=== PATIENT | female | born 1940 | race Caucasian/White ===

== ENCOUNTER 2024-06-25 20:13 | Emergency (ER) | payer OTHER ==
[~2024-06-25] VITALS: Ht 149.9 cm; Wt 67.1 kg
--- NOTE | 2024-06-25 20:35 | ERN ---
ED Note History of Present Illness Stated Complaint: ALLERGIC REACTION Chief Complaint: Allergic Reaction Time Seen by MD: 20:31 Dictation: PATIENT IS AN 80-YEAR-OLD FEMALE HERE WITH SWOLLEN LOWER LIP AND URTICARIAL RASH ONSET 1 HOUR PRIOR TO ARRIVAL. SHE STATES SHE WAS EATING A TURKEY SANDWICH WITH HER DAUGHTER, SHE HAS HAD THE SAME FOOD IN THE PAST. NO SOB VOICE IS CLEAR. TAKEN ANYTHING PRIOR TO ARRIVAL. Allergies: Coded Allergies: No Known Drug Allergies (Unverified Allergy, Unknown, 06/25/24) Past Medical History Past Medical History: CHF, Depression, High Cholesterol, Other Additional Past Medical Hx: THYROID Surgical History: Appendectomy, Cholecystectomy, Other Surgical History Other: LEFT LEG History: Not Applicable RN Note Reviewed/Agreed w/PFSH: Yes Review of System Dictation CONSTITUTIONAL: NEGATIVE EXCEPT FOR HPI HEAD/FACE: NEGATIVE EXCEPT FOR HPI EENT: NEGATIVE EXCEPT FOR HPI ANGIOEDEMA LOWER LIP RESPIRATORY: NEGATIVE EXCEPT FOR HPI GASTROINTESTINAL/ABDOMINAL: NEGATIVE EXCEPT FOR HPI GENITOURINARY: NEGATIVE EXCEPT FOR HPI MUSCULOSKELETAL: NEGATIVE EXCEPT FOR HPI INTEGUMENTARY: NEGATIVE EXCEPT FOR HPI URTICARIA NEUROLOGICAL/PSYCH: NEGATIVE EXCEPT FOR HPI HEMATOLOGIC/LYMPHATIC: NEGATIVE EXCEPT FOR HPI ALL SYSTEMS NEGATIVE, EXCEPT NOTED ABOVE. 13 POINT REVIEW OF SYSTEMS ASSESSED AND ALL NEGATIVE EXCEPT FOR ABOVE. Initial Vital Sign VS Vital Signs Date Time Temp Pulse Resp B/P (MAP) Pulse Ox O2 Delivery O2 Flow Rate FiO2 06/25/24 20:15 97.9 66 20 166/67 96 Room Air Physical Exam Dictation VITAL SIGNS REVIEWED GENERAL APPEARANCE: ALERT, ORIENTED X 3, NO ACUTE DISTRESS, WELL DEVELOPED, NOURISHED. HEAD AND FACE: NON-TRAUMATIC. EYES: PERRL, PINK CONJUNCTIVAS, EYELID NO TRAUMA, ANTERIOR CHAMBER WITH ARCUS SENILIS. EARS: PINNAS INTACT AND NO SIGNS OF TRAUMA OR ERYTHEMA EAR CANALS CLEAR AND NO DISCHARGE TM NO ERYTHEMA NOSE: NO DISCHARGE, NO BLEEDING. OROPHARYNX: ANGIOEDEMA LOWER LIP VOICE IS CLEAR NO THROAT TIGHTENING PER PATIENT PHARYNX CLEAR,NO ERYTHEMA, TONSILS NO EXUDATES, NO ABSCESSES NOTED, MUCOUS MEMBRANE MOIST NECK: SUPPLE, NON-TENDER, NO THYROMEGALY, NO MASSES, NO JVD, NO BRUITS BREAST:DEFERRED CHEST:NO TENDERNESS, NO CREPITUS, NO PARADOXICAL MOVEMENT, NO RETRACTIONS LUNGS:CLEAR, WELL-VENTILATED, SYMMETRIC, NO RALES, NO WHEEZING, NO RHONCHI, NO STRIDOR, GOOD BREATH SOUNDS BILATERALLY HEART: REGULAR RATE, REGULAR RHYTHM, NO MURMUR, NO GALLOPS VASCULAR: NO PERIPHERAL EDEMA, ABDOMEN: SOFT, POSITIVE BOWEL SOUNDS, NONDISTENDED, NO GUARDING, NONTENDER, NO REBOUND, NO MASSES NO HEPATOMEGALY, NO SPLENOMEGALY, NO HAIRSTON'S SIGN, NO HERNIAS. RECTAL: DEFERRED GENITAL: DEFERRED NEUROLOGICAL: NORMAL SPEECH, MOTOR FUNCTION INTACT, SENSORY FUNCTION INTACT MUSCULOSKELETAL: NECK NONTENDER, FULL RANGE OF MOTION, BACK NONTENDER, FULL RANGE OF MOTION, EXTREMITIES: NONTENDER, FULL RANGE OF MOTION SKIN: COLOR PINK, DRY, DISCRETE URTICARIAL RASH TO ANTERIOR AND POSTERIOR THORAX. LYMPHATIC: DEFERRED Results (Laboratory/Radiology) Labs Reviewed?: Yes ED Course ED Course Orders Procedure Category Date Status Time Diphenhydramine Hcl PHA 06/25/24 Complete (Benadryl Inj) 21:00 Dexamethasone 4mg/Ml PHA 06/25/24 Complete 1ml Vial (Dexametha 21:00 Famotidine 20mg Tab PHA 06/25/24 Complete (Pepcid 20mg Tab) 21:00 Current Medications Medications (Trade) Dose Ordered Sig/Rafita Route PRN Reason Start Time Stop Time Status Last Admin Dose Admin Dexamethasone Sodium Phosphate (dexaMETHasone 4MG/ML 1ML VIAL) 4 mg ONCE ONCE IM 06/25/24 21:00 06/25/24 21:01 DC 06/25/24 21:13 Diphenhydramine HCl (BENAdryl INJ) 25 mg ONCE ONCE IM 06/25/24 21:00 06/25/24 21:01 DC 06/25/24 21:14 Famotidine (Pepcid 20mg Tab) 40 mg ONCE ONCE PO 06/25/24 21:00 06/25/24 21:01 DC 06/25/24 21:14 Vital Signs Date Time Temp Pulse Resp B/P (MAP) Pulse Ox O2 Delivery O2 Flow Rate FiO2 06/25/24 20:15 97.9 66 20 166/67 96 Room Air 2135/angioedema is resolving patient has mild urticarial rash remaining. Bilateral breath sounds are clear voice is clear she wants to go home. Medical Decision Making MDM Medical discharge making based on empiric treatment for urticarial rash and angioedema of the lips Patient was advised that there is no test to show what she has responded to. She states she has had a history of urticarial rashes a coming go in the past few years however has not been referred to technology analyst. I advised her to see her primary care doctor back in [place] and be referred to an technology analyst for treatment and management DX & DISP Disposition: Discharge Departure Impression: Primary Impression: Acute allergic reaction Additional Impressions: Angioedema of lips, Urticaria Condition: Stable Scripts Famotidine (Pepcid) 40 Mg Tablet 1 TAB PO DAILY for 30 Days, #30 TAB 0 Refills Prov: JAKE CAN NP 06/25/24 Methylprednisolone (Medrol) 4 Mg Tab.ds.pk 1 TAB PO AD for 6 Days, #21 TAB 0 Refills 6 on day 1 then reduce by one tablet daily until gone Prov: JAKE CAN NP 06/25/24 Additional Instructions: Follow-up with primary care provider in 1 to 2 days. Take medications as directed here in the emergency room. Okay to continue home medications unless otherwise discussed during your visit in the emergency room today. Return to your nearest emergency room if symptoms worsen or if there is no improvement. Call 911 if you need immediate assistance. Take Tylenol or Motrin [id number] as needed and if no contraindications are present. Increase oral hydration. A wound culture or urine culture was ordered here in the emergency room department please follow-up with primary care provider and advise them to get repeat ports from our facility. If you had any Gurwinder wrap/splints that were applied here, please do not remove them until you see your primary care or specialty. Take Benadryl 50 mg by mouth for three more doses starting in the morning. Take Medrol Dosepak as directed until gone. Take Pepcid 40 mg daily as directed for the next 5-10 days. See your doctor back in [place] for referral to an technology analyst for allergy testing and management of your urticarial. Referrals: SELF,REFERRAL (PCP) Time of Disposition: 21:41 I have reviewed the case, and I agree with, Diagnosis and Plan JAKE CAN NP Jun 25, 2024 20:35
[2024-06-25] MEDS: dexaMETHasone SOD PHOSPHATE 4 MG/ML 1ML VIAL IM ONE (21:13)
[2024-06-25] MEDS: DiphenhydrAMINE HCL 50 MG/ML VIAL IM ONE (21:14)
[2024-06-25] MEDS: FAMOTIDINE 20MG TAB PO ONE (21:14)
[2024-06-25] MEDS ORDERED: METH4TAB3 PO (21:41)
[2024-06-25] MEDS ORDERED: FAMO40TA75 PO (21:41)
[2024-06-25 22:00] VITALS: BP 135/60; PULSE 66; RESP 20; TEMP 98.2; O2SAT 97
== END 2024-06-25 22:01 | disposition home or self-care (01) ==
LOC: EDH 20:13 → EDBD 20:13 → EDH 22:01
DX: T78.3XXA Angioneurotic edema, initial encounter (principal); E78.00 Pure hypercholesterolemia, unspecified; I50.9 Heart failure, unspecified; Z90.49 Acquired absence of other specified parts of digestive tract; Z98.890 Other specified postprocedural states; X58.XXXA Exposure to other specified factors, initial encounter
CPT/HCPCS: 99283; 96372 ×2; J1100; J1200